=== PATIENT | female | born 2000 | race Hispanic/Latino ===

== ENCOUNTER 2020-02-01 13:18 | Outpatient (CLI) | payer OTHER, SELFPAY ==
--- NOTE | ~2020-02-01 | US_ITS ---
EXAMINATION: US OB <= 14 weeks fetus DATE: 02/01/2020 14:09 INDICATION: Routine care first trimester TECHNIQUE: Real-time transabdominal and transvaginal obstetric ultrasound. FINDINGS: No prior studies for comparison. The uterus measures 12 x 6.3 x 8 cm. There is an intrauterine gestational sac, with pole identi fied. The crown rump length measures 5.3 cm, which correlates with a estimated gestational age of 12 weeks 0 days. heart tones are identified measuring 163 BPM. The right ovary measures 1.7 x 0 .8 x 1.5 cm. The left ovary measures 2.4 x 1.0 x 1.1 cm. No free fluid in the pelvis. IMPRESSION: 1. SL IUP with an EGA of 12 weeks, 0 days (EDC by current ultrasound of 08/15/2020). Reviewed, dictated and finalized at location B. IMPRESSION: 1. SL IUP with an EGA of 12 weeks, 0 days (EDC by current ultrasound of 021).
== END 2020-02-01 13:19 | disposition home or self-care (01) ==
PROVIDERS: Visit Provider Obstetrics & Gynecology
DX: Z34.91 Encounter for supervision of normal pregnancy, unspecified, first trimester (principal); Z3A.12 12 weeks gestation of pregnancy
CPT/HCPCS: 76801

== ENCOUNTER 2020-03-18 16:30 | Outpatient (CLI) | payer OTHER, SELFPAY ==
--- NOTE | ~2020-03-18 | US_ITS ---
EXAMINATION: US OB /maternal detail DATE: 03/18/2020 17:40 INDICATION: Routine care. Assess anatomy during second trimester of . TECHNIQUE: Multiple obstetric sonographic images performed. FINDINGS: There is a single living fetus in variable presentation. The placenta is posterior. LAKIA measures 9.0 cm. (5th%-95%: 8.7-20.2 cm at 18 weeks estimated gestational age) heart rate of 157 beats per minute. The following anatomy was identified as normal: Ventricles, choroid plexus, falx and cava septum pellucidum Cerebellum and cisterna magna Nuchal fold Upper lip Spine Heart views are normal aside from an internal echogenic focus in the left ventricle Diaphragm Stomach Kidneys Bladder 3 vessel cord and cord insertion Bilateral upper and lower extremities including hands and feet The following biometric data were obtained: BPD: 4.1 cm -> 18 weeks 3 days Head circumference: 15.4 cm -> 18 weeks 3 days Abdominal circumference: 14.5 cm -> 19 weeks 6 days Femur length: 2.8 cm -> 18 weeks 3 days Head circumference to abdominal circumference ratio: 1.06 (normal range 1.09-1.26). These measurements are otherwise concordant. Estimated weight: 273 g (+/-) 41 g. or 10 oz. (+/-) 1 oz. IMPRESSION: 1. Single living fetus with variable presentation with heart rate of 157 bpm. 2. Estimated weight is 93rd percentile by Hadlock criteria when 08/18/2020 is used as the PALMER. P lease correlate with clinical information or earlier ultrasounds for most accurate PALMER. 3. Normal survey aside from an echogenic focus in the left ventricle. 4. Head circumference to abdominal circumference ratio slightly greater than 2 standard deviations be low the mean. 5. Normal amniotic fluid index of 9.0 cm. Reviewed, dictated and finalized at location A. RAL OFFICE WORKER IMPRESSION: 1. Single living fetus with variable presentation with heart rate of 157 bpm. 2. Estimated weight is 93rd percentile by Hadlock criteria when 08/18/2020 is used as the PALMER. Please correlate with clinical information or earlier ultr asounds for most accurate PALMER. 3. Normal survey aside from an echogenic focus in the left ventricle. 4. Head circumference to abdominal circumference ratio slightly greater than 2 standard deviations below the mean. 5. Normal amniotic fluid index of 9.0 cm.
== END 2020-03-18 16:31 | disposition home or self-care (01) ==
PROVIDERS: Visit Provider Obstetrics & Gynecology
DX: Z34.92 Encounter for supervision of normal pregnancy, unspecified, second trimester (principal); Z3A.18 18 weeks gestation of pregnancy
CPT/HCPCS: 76805

== ENCOUNTER 2020-04-29 15:07 | Outpatient (CLI) | payer OTHER, SELFPAY ==
--- NOTE | ~2020-04-29 | US_ITS ---
EXAMINATION: US OB follow up DATE: 04/29/2020 15:50 INDICATION: Large for gestational age during late second trimester of TECHNIQUE: Real-time ultrasound of the pelvis was performed. The interpreting radiologist was not pre sent for the study. COMPARISON: None. FINDINGS: There is a single living fetus in vertex presentation. The placenta is posterior. heart rate i s 147 beats per minute (bpm). The amniotic fluid volume is subjectively normal. The following biometric data were obtained: BPD: 5.9 cm -> 24 weeks 1 days Head circumference: 22.7 cm -> 24 weeks 5 days Abdominal circumference: 19.7 cm -> 24 weeks 2 days Femur length: 4.5 cm -> 24 weeks 5 days These measurements are concordant. Head circumference to abdominal circumference ratio: 1.16 (normal range 1.04-1.22). Estimated weight: 702 g (+/-) 105 g. or 1 lbs. 9 oz. (+/-) 4 oz. IMPRESSION: 1. Single living fetus in vertex presentation with heart rate of 147 bpm. 2. Estimated weight is 58th percentile by Hadlock criteria when 08/18/2020 is used as the estimat ed date of delivery (PALMER). Please correlate with clinical information or earlier ultrasounds for most accurate PALMER. Reviewed, dictated and finalized at location A. DEPARTMENT BATTALION CHIEF IMPRESSION: 1. Single living fetus in vertex presentation with heart rate of 147 bpm. 2. Estimated weight is 58th percentile by Hadlock criteria when 08/18/2020 is used as the estimated date of delivery (PALMER). Please correlate with clinical information or earlier ultrasounds for most accurate PALMER.
== END 2020-04-29 15:08 | disposition home or self-care (01) ==
PROVIDERS: Visit Provider Obstetrics & Gynecology
DX: O35.8XX9 Maternal care for other (suspected) fetal abnormality and damage, other fetus (principal); Z3A.00 Weeks of gestation of pregnancy not specified
CPT/HCPCS: 76816

== ENCOUNTER 2020-05-27 15:04 | Outpatient (CLI) | payer OTHER, SELFPAY ==
--- NOTE | ~2020-05-27 | US_ITS ---
EXAMINATION: US OB follow up DATE: 05/27/2020 15:35 INDICATION: Supervision of normal during early third trimester. TECHNIQUE: Real-time ultrasound of the pelvis was performed. The interpreting radiologist was not pre sent for the study. COMPARISON: 04/29/2020 FINDINGS: There is a single living fetus in vertex presentation. The placenta is posterior. heart rate i s 137 beats per minute (bpm). The amniotic fluid volume is subjectively normal. The following biometric data were obtained: BPD: 7.1 cm -> 28 weeks 5 days Head circumference: 26.7 cm -> 29 weeks 0 days Abdominal circumference: 23.3 cm -> 27 weeks 5 days Femur length: 5.2 cm -> 27 weeks 5 days These measurements are concordant. Head circumference to abdominal circumference ratio: 1.14 (normal range 1.01-1.21). Estimated weight: 1139 g (+/-) 171 g. or 2 lbs. 8 oz. (+/-) 6 oz. IMPRESSION: 1. Single living fetus in vertex presentation with heart rate of 137 bpm. 2. Estimated weight is 16th percentile by Hadlock criteria when 08/15/2020 is used as the estimat ed date of delivery (PALMER) based upon earliest ultrasound performed at this institution on 02/01/2020. Please correlate with clinical information or earlier ultrasounds for most accurate PALMER. Reviewed, dictated and finalized at location A. LOPMENT MANAGER IMPRESSION: 1. Single living fetus in vertex presentation with heart rate of 137 bpm. 2. Estimated weight is 16th percentile by Hadlock criteria when 08/15/2020 is used as the estimated date of delivery (PALMER) based upon earliest ultrasound performed at this institution on 02/01/2020. Please correlate with clinical inf ormation or earlier ultrasounds for most accurate PALMER.
== END 2020-05-27 15:05 | disposition home or self-care (01) ==
PROVIDERS: Visit Provider Obstetrics & Gynecology
DX: Z34.91 Encounter for supervision of normal pregnancy, unspecified, first trimester (principal); Z3A.27 27 weeks gestation of pregnancy
CPT/HCPCS: 76816

== ENCOUNTER 2020-08-13 06:00 | Inpatient (IN) | payer OTHER, SELFPAY ==
--- NOTE | 2020-08-12 16:16 | PM.IMHP ---
H&P: HPI History of Present Illness Date/Time: 08/12/20 16:16 20 yo F with history of MTHFR, BV, HSV, GBS, miscarriages, GERD, asthma, anxiety and depression who presents for elective in duction of labor at 39wk3d. She understands her condition procedure and risk involved she understands maternal or indications for delivery with risk involved including but not limited to bleeding infection injury to bladder bowel baby pelvic vessels DVT pneumonia wound infection UTI and risk of anesthesia risk of shoulder dystocia and hemorrhage have been discussed Chief Complaint: term Elective induction of labor Review of Systems Review of Systems: All systems reviewed & are unremarkable except as noted in HPI and below Constitutional: Constitutional: Reports no additional constitutional complaints Eyes: Eyes: Reports no additional eye complaints ENT: Reports system reviewed and no additional complaints, except as documented Cardiovascular: Cardiovascular: Reports no additional cardiovascular complaints Respiratory: Respiratory: Reports no additional respiratory complaints Gastrointestinal: Gastrointestinal: Reports no additional gastrointestinal complaints Genitourinary: Genitourinary: Reports no additional female genitourinary complaints Musculoskeletal: Musculoskeletal: Reports no additional musculoskeletal complaints Integumentary/Breasts: Skin/Breast: Reports system reviewed and no additional complaints, except as docu Neurologic: Reports system reviewed and no additional complaints, except as documented Psychiatric: Psychiatric: Reports no additional psychiatric complaints PMFSH Past Medical History Medical History (Updated 08/12/20 @ 16:33 by Matthew La MD) Asthma BV (bacterial vaginosis) Brooklynn vaginitis INÉS (generalized anxiety disorder) GBS (group B Streptococcus carrier), +RV culture, currently GERD (gastroesophageal reflux disease) Homozygous MTHFR mutation 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 HSV (herpes simplex virus) anogenital infection MDD (major depressive disorder) PTSD (post-traumatic stress disorder) SAB (spontaneous ) Vaginal delivery 03/30/2017140.27 lbs.15 oz.FVaginalFull Term BirthLoUN[facility]NP[facility]: [place] Radhika Berkowitz Family History Family History (Updated 08/12/20 @ 16:29 by Matthew La MD) Grandparent Diabetes mellitus Social History Social History (Updated 08/12/20 @ 16:29 by Matthew La MD) Smoking status: Never smoker Second hand tobacco smoke exposure: No Alcohol intake: never Substance use: never Living arrangements: with family Occupation/Education: unemployed Gender identity (if verbalized by the patient): Female Sexual Orientation (if Verbalized by the Patient): Straight or Heterosexual Spiritual care concerns: No Agree to blood products: Yes Meds Home Medications and Allergies Home Medications Medication Instructions Recorded Confirmed Type acyclovir 800 mg PO DAILY 07/18/20 07/18/20 History calcium carbonate-vitamin D3 1 tablet PO BID 07/18/20 07/18/20 History [Calcium 600 + D(3)] prenat.vits,gwen,kie-awyn-kpkyn 1 tablet PO DAILY 07/18/20 07/18/20 History [ #2] Allergies Allergy/AdvReac Type Severity Reaction Status Date / Time No Known Allergies Allergy Verified 07/18/20 14:44 Exam Const: General: no acute distress HENMT: Ears: TM's normal bilaterally Eyes: General: appearance normal, both eyes and all related structures Neck: Neck: no JVD Resp: Auscultation: clear to auscultation bilaterally Cardio: Rate: regular rate Rhythm: regular rhythm GI: GI Palp: Yes Soft to palpation Auscultation: normal bowel sounds : External Female Exam: normal external appearance Manual OB Exam: dilated 1 cm, effaced 50% and station high Amniotic Fluid: no fluid Back/Spine/Pelvis: Back: no CVA tenderness Skin: General skin e
--- NOTE | 2020-08-12 16:21 | WPDHPUPDATE1 ---
History and Physical Update Update Date/Time: 08/13/2005/05/699 History and Physical has been reviewed, including an updated exam of the patient. There are NO changes in the patient's condition. Risks, benefits, and alternatives have been discussed and questions answered. Patient agrees to proceed with procedure. 20 yo F with history of MTHFR, BV, HSV, GBS, miscarriages, GERD, asthma, anxiety and depression who presents for elective in duction of labor at 39wk3d. She understands her condition procedure and risk involved she understands maternal or indications for delivery with risk involved including but not limited to bleeding infection injury to bladder bowel baby pelvic vessels DVT pneumonia wound infection UTI and risk of anesthesia risk of shoulder dystocia and hemorrhage have been discussed
--- NOTE | 2020-08-12 16:22 | WPDOBADMIT ---
Obstetrics - Admit Note Admission Note: record reviewed. No pertinent additions to the history and/or any subsequent changes in the physical findings that are not consistent with the expected course of the were found. Additions to the history and/or subsequent changes in the physical findings follow. None. 20 yo F with history of MTHFR, BV, HSV, GBS, miscarriages, GERD, asthma, anxiety and depression who presents for elective in duction of labor at 39wk3d. She understands her condition procedure and risk involved she understands maternal or indications for delivery with risk involved including but not limited to bleeding infection injury to bladder bowel baby pelvic vessels DVT pneumonia wound infection UTI and risk of anesthesia risk of shoulder dystocia and hemorrhage have been discussed 08/13/20 1400
[2020-08-13] VITALS (33 sets, daily range): BP systolic 89–126; BP diastolic 36–77; PULSE 76–113; RESP 18; TEMP 36.2–37.1; O2SAT 100; BMI 31.3
[2020-08-13] MEDS: AMPICILLIN 2 GM/NS 100 ML 2 GM/100 ML BAG IVPB (06:51)
[2020-08-13] MEDS: LACTATED RINGERS 1,000 ML 125 ML IV CONT ×2 (06:51→17:22)
[2020-08-13] MEDS: OXYTOCIN 30 UNITS/NS 500 ML 30 UNITS/500 ML BAG IV CONT (06:52)
[2020-08-13 06:53] LABS: Basophils Percent Auto 0.3 % (0.2-1.2); Eosinophils Absolute Auto 0.1 K/mm3 (0-0.3); Eosinophils Percent Auto 1.3 % (0-4.4); Hematocrit 34.7 % (37.0-47.0); Hemoglobin 11.8 g/dL (12.0-15.0); Immature Granulocyte Absolute 0.07 K/mm3 (0.00-0.031); Lymphocytes Percent Auto 19.2 % (18.3-44.2); Mean Corpuscular Hemoglobin 30.5 pg (26-34); Mean Corpuscular Volume 89.7 fl (80-100); Mean Platelet Volume 10.5 fl (7.4-10.4); Monocytes Absolute Auto 0.5 K/mm3 (0.1-0.6); Monocytes Percent Auto 7.7 % (2.6-8.5); Neutrophils Absolute Auto 4.8 K/mm3 (1.3-6.7); Neutrophils Percent Auto 70.5 % (45.5-73.1); Platelet Count Result 217 k/mm3 (150-375); Red Blood Count 3.87 M/mm3 (4.2-5.4); Red Cell Distribution Width 13.5 % (11.5-14.5); White Blood Count 6.8 K/mm3 (4.5-10.0)
--- NOTE | 2020-08-13 07:05 | LDADM ---
This patient, Paulino Rodriguez, was admitted to Labor/Delivery/Recovery 105 on 08/13/20 at 06:00. Plans for labor, pain management and were discussed with patient. Patient/family oriented to hospital policies and general routines including ID bracelet, bed and alarms, visiting hours, pain management, procedures, bathroom and other care routines, personal items, smoking policy, room service/diet and guest tray routines, security routines, and visiting hours. Patient/Family are encouraged to report perceived risks to care and to ask questions if they do not understand what they are told or what they should do. See OBIX for further documentation.
--- NOTE | 2020-08-13 08:28 | WPDANESEPP ---
Anes - Eval Pre Procedure Procedure: Labor Epidural Date/Time: 08/13/20 08:28 Pre Op Diagnosis: Induction of Labor Patient Data Age: 20 Gender: F Height: 1.59 m Weight: 79 kg Last Vital Signs Temp 37.1 C 08/13/20 07:00 Pulse 90 08/13/20 07:30 BP 97/66 L 08/13/20 07:30 Allergies Allergy/AdvReac Type Severity Reaction Status Date / Time No Known Allergies Allergy Verified 07/18/20 14:44 Home Medications Medication Instructions Recorded Confirmed Type acyclovir 800 mg PO DAILY 07/18/20 07/18/20 History calcium carbonate-vitamin D3 1 tablet PO BID 07/18/20 07/18/20 History [Calcium 600 + D(3)] prenat.vits,gwen,ljs-axlf-ccsrk 1 tablet PO DAILY 07/18/20 07/18/20 History [ #2] albuterol sulfate [Ventolin HFA] 1 puff INHALATION DAILY PRN 08/13/20 08/13/20 History Laboratory Tests 08/13/20 08/13/20 08/13/20 06:46 06:46 08:09 WBC 6.8 K/mm3 K/mm3 (4.5-10.0) RBC 3.87 M/mm3 L M/mm3 (4.2-5.4) Hgb 11.8 g/dL L g/dL (12.0-15.0) Hct 34.7 % L % (37.0-47.0) MCV 89.7 fl fl (80-100) MCH 30.5 pg pg (26-34) MCHC 34.0 g/dl g/dl (32-36) RDW 13.5 % % (11.5-14.5) Plt Count 217 k/mm3 k/mm3 (150-375) MPV 10.5 fl H fl (7.4-10.4) Immature Gran % (Auto) 1.0 % H % (0-0.5) Neut % (Auto) 70.5 % % (45.5-73.1) Lymph % (Auto) 19.2 % % (18.3-44.2) [place] % (Auto) 7.7 % % (2.6-8.5) Eos % (Auto) 1.3 % % (0-4.4) Baso % (Auto) 0.3 % % (0.2-1.2) Lymph # (Auto) 1.30 K/mm3 K/mm3 (0.9-3.2) [place] # (Auto) 0.5 K/mm3 K/mm3 (0.1-0.6) Eos # (Auto) 0.1 K/mm3 K/mm3 (0-0.3) Baso # (Auto) 0.0 K/mm3 K/mm3 (0.0-0.1) Abs Immat Gran (auto) 0.07 K/mm3 H K/mm3 (0.00-0.031) Absolute Neuts (auto) 4.8 K/mm3 K/mm3 (1.3-6.7) Absolute Nucleated RBC 0.0 K/mm3 K/mm3 (0.0-0.012) Nucleated RBC % 0.0 % % (0.0-0.2) RPR Pending HIV 1&2 Ab/P24 Ag 4thGn Pending Patient hx anesthesia problems: none Family hx anesthesia problems: none PMFSH Past Medical History Medical History Asthma BV (bacterial vaginosis) Brooklynn vaginitis INÉS (generalized anxiety disorder) GBS (group B Streptococcus carrier), +RV culture, currently GERD (gastroesophageal reflux disease) Homozygous MTHFR mutation [id number] HSV (herpes simplex virus) anogenital infection MDD (major depressive disorder) PTSD (post-traumatic stress disorder) SAB (spontaneous ) Vaginal delivery 03/30/2017140.27 lbs.15 oz.FVaginalFull Term BirthLoLovelace [facility] HospitalNP[facility]: [facility] Dr[facility] Denisha Berkowitz Family History Family History Grandparent Diabetes mellitus Social History Social History Smoking status: Never smoker Second hand tobacco smoke exposure: No Alcohol intake: never Substance use: never Living arrangements: with family Occupation/Education: unemployed Gender identity (if verbalized by the patient): Female Sexual Orientation (if Verbalized by the Patient): Straight or Heterosexual Spiritual care concerns: No Agree to blood products: Yes Exam Day of Procedure 08/13/20 08:28 Patient weight: obese Heart: regular rate and rhythm Lungs: normal air movement Airway: Mallampati scale class II Neurological: alert and oriented
[2020-08-13 09:12] LABS: Amphetamine Screen Urine Negative (Negative); Barbiturate Screen Urine Negative (Negative); Benzodiazepines Screen Urine Negative (Negative); Cannabinoid Screen Urine Negative (Negative); Cocaine Screen Urine Negative (Negative); Methadone Screen Urine Negative (Negative); Opiate Screen Urine Negative (Negative); Phencyclidine Screen Urine Negative (Negative)
[2020-08-13 09:16] LABS: HIV 1/2 Ab P24 Ag Result Negative (Negative)
[2020-08-13] MEDS: AMPICILLIN 1 GM/NS 50 ML 1 GM/50 ML BAG IVPB ×2 (11:03→15:04)
--- NOTE | 2020-08-13 12:09 | PM.OBPNLAB ---
Pain Control Date/time seen: 08/13/20 11:09 Pain control: tolerating well Pelvic Exam Dilation (cm): 2 Effacement (%): 50 station: -3 Amniotic membrane status: Ruptured Comments: AROM clear af Contractions Monitor mode: External Contraction frequency: 4 Contraction duration: 45 Contraction pattern: Regular Contraction phase: Contraction Contraction intensity: Moderate Status status: Category l Assessment and Plan Pitocin rate (mU/min): 18 Assessment: induction ongoing Plan: continuous present management Comments: NCLalit
--- NOTE | 2020-08-13 14:35 | PM.OBPNLAB ---
Pain Control Date/time seen: 08/13/20 14:34 Pain control: tolerating well Pelvic Exam Dilation (cm): 4 Effacement (%): 70 station: -3 Amniotic membrane status: Ruptured Contractions Monitor mode: External Contraction frequency: 4 Contraction pattern: Regular Contraction phase: Contraction Contraction intensity: Moderate Status status: Category l Assessment and Plan Assessment: active labor Plan: continuous present management
--- NOTE | 2020-08-13 16:35 | PM.OBPNLAB ---
Pain Control Date/time seen: 08/13/20 16:35 Pain control: tolerating well Pelvic Exam Dilation (cm): 7 Effacement (%): 80 station: -2 Amniotic membrane status: Ruptured Contractions Monitor mode: External Contraction frequency: 4 Contraction duration: 45 Contraction pattern: Regular Contraction phase: Contraction Contraction intensity: Strong/Firm Status status: Category l Assessment and Plan Assessment: active labor Plan: continuous present management
--- NOTE | 2020-08-13 17:50 | PM.OBPNLAB ---
Pain Control Date/time seen: 08/13/20 17:49 Pain control: tolerating well Pelvic Exam Dilation (cm): 9 Effacement (%): 100 station: -2 Amniotic membrane status: Ruptured Contractions Monitor mode: External Contraction frequency: 4 Contraction pattern: Regular Contraction phase: Contraction Contraction intensity: Strong/Firm Status status: Category l Assessment and Plan Assessment: active labor Plan: continuous present management
--- NOTE | 2020-08-13 18:50 | PM.OBPRVD ---
OB - Delivery Note Procedure Delivery date: 08/13/20 Procedure: Normal spontaneous vertex vaginal delivery a viable male infant and placenta events: Labor Induction Intrapartal events: None Induction method: per pitocin protocol Delivery augmentation: rupture of membranes Delivery monitor: external FHT and external uterine Route of delivery: Episiotomy description: None Laceration Description: None Specimen: Yes (Placenta, cord gases, cord blood) Quantitative Blood Loss (ml): 140 Anesthesia type: None Disposition: floor Complications: None Narrative: Patient was in knee-chest position for the end of the 1st stage of labor with excellent resolution to complete cervical dilation rapid descent for 2nd stage of labor. Patient pushed in the 2nd stage of labor and had a normal spontaneous vertex vaginal delivery a viable male infant over an intact perineum EZ delivery of anterior shoulder posterior shoulder and delivered and placed onto the maternal abdomen. Cord clamped and cut normal spontaneous respirations and cry no observed abnormalities on the exam cord gas obtained cord blood obtained. Placenta delivered intact with a three-vessel cord the uterus contracted well Pitocin given intravenously the uterus was firm above pubic symphysis. Cervix and rectum were checked no sponges left in the vagina no fistula sphincters in tact. Labor room 105 [place] Baby Date of : 08/13/20 Time of : 18:37 Weeks of gestation at delivery: 39 Infant gender: Male Weight (pounds): 6 Weight (ounces): 13 presentation: vertex position: Left Occiput Anterior Placenta delivery description: Spontaneous and Normal Configuration cord vessel description: 3 Vessels score one minute: 9 score five minutes: 9 Narrative: Normal spontaneous respirations normal transition scores 9 and 9 weight 6 lb 13 oz normal exam taken the nursery stable condition breast and bottle feeding
[2020-08-13] MEDS: OXYTOCIN 30 UNITS/NS 500 ML 30 UNITS/500 ML BAG 125 UNITS IV CONT (19:11)
[2020-08-13] MEDS: WITCH HAZEL 40 PADS 1 PAD TOPICAL (20:12)
[2020-08-13] MEDS: BENZOCAINE 20% AER SPR (*SP) 56 GM CAN 1 SPRAY TOPICAL (20:12)
[2020-08-13] MEDS: IBUPROFEN 600 MG TABLET PO (20:13)
--- NOTE | 2020-08-13 20:53 | PC.NURSE ---
Patient transferred to post room #288 via wheel chair. Oriented to unit, room, information board, rooming in, admission packet and security measures. Patient verbalizes understanding.
[2020-08-14] VITALS: BP 97/59; PULSE 93; RESP 18; TEMP 36.4; O2SAT 100
[2020-08-14 04:30] VITALS: BP 98/60; PULSE 79; RESP 18; TEMP 36.7; O2SAT 100
[2020-08-14] MEDS: IBUPROFEN 600 MG TABLET PO ×2 (04:48→17:29)
[2020-08-14 04:55] LABS: Hematocrit 34.8 % (37.0-47.0); Hemoglobin 11.8 g/dL (12.0-15.0)
[2020-08-14 08:00] VITALS: PULSE 79; RESP 18; O2SAT 100
--- NOTE | 2020-08-14 11:07 | PM.OBPNVD ---
OB - PN: Subj Subjective Date/time seen: 08/14/20 11:07 Patient comments: no complaints, pain well controlled, tolerating diet and flatus present [place] baby status: doing well and nursing well feeding status: exclusively breast feeding OB - PN: Obj Data Labs CBC & Chem 7: 08/14/20 04:37 Labs: Laboratory Results - last 24 hr 08/14/20 04:37 Hgb 11.8 L Hct 34.8 L OB - PN A/P Assessment and Plan (1) Term delivered: Code(s): O80 - Encounter for full-term uncomplicated delivery Status: Acute Plan day: 1 Plan: routine care, discharge home and follow up 6 weeks Time Spent With Patient Time: Total time spent is greater than 50% in coordination of care (as documented) at patient's floor/unit and/or counseling patient: Time with patient: less than 15 minutes Review of Systems Review of Systems: All systems reviewed & are unremarkable except as noted in HPI and below Exam Const: General: comfortable, no acute distress, alert and awake Chest: Breast/axilla inspection: normal inspection of the breasts Resp: Effort & Inspection: normal respiratory effort Cardio: Rate: regular rate GI: Auscultation: normal bowel sounds : External Female Exam: normal external appearance Bimanual exam- vagina & uterus: non-tender Psych: Appearance: grossly normal Mental Status: mental status grossly normal
--- NOTE | 2020-08-14 11:09 | PM.OBDSVD ---
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: Code(s): Z15.89 - Genetic susceptibility to other disease Status: Acute (5) GBS (group B Streptococcus carrier), +RV culture, currently : Code(s): O99.820 - Streptococcus B carrier state complicating Status: Acute OB - DS: Summary Hospital Course Time spent discussing smoking cessation with patient: 3 to 10 minutes OB Procedures : Ultrasound OB Procedures Intrapartum: Spontaneous Vag Delivery OB Procedures: : None Peripartum Data Infant Delivery Method: Natural Vaginal Laceration Description: None Episiotomy description: None Procedures: Normal spontaneous vertex vaginal delivery a viable male infant and placenta complications: none 1: Gender: Male Disposition of : home Status at Discharge Functional status at discharge: independent ambulation Overall status at discharge: patient is back to baseline Time Spent with Patient Time attestation: Total time spent providing and/or coordinating discharge services: Time spent: Less than 30 minutes Exam Const: General: cooperative, healthy appearing, comfortable, no acute distress, well developed, alert, awake and Physically active Nutritional Appearance: average body habitus Orientation/consciousness: patient oriented x3 Limitations: no limitations HENMT: Head: normal to inspection Eyes: General: appearance normal, both eyes and all related structures Neck: Neck: normal visual inspection Chest: Chest palpation & inspection: normal inspection of the chest Breast/axilla inspection: normal inspection of the breasts Resp: Effort & Inspection: normal respiratory effort Auscultation: clear to auscultation bilaterally Cardio: Rate: regular rate Rhythm: regular rhythm GI: Inspection: normal to inspection GI Palp: Yes Soft to palpation Auscultation: normal bowel sounds : External Female Exam: normal external appearance Bimanual exam- vagina & uterus: non-tender Back/Spine/Pelvis: Back: no CVA tenderness Skin: General skin exam: normal color Neuro: General: patient oriented x3, gait normal, tone normal and moves all extremities Extrem: General: normal to inspection, full ROM and no calf tenderness Psych: Appearance: grossly normal Mental Status: mental status grossly normal Speech and movement: Normal speech and movement present Affect: normal affect Attitude: cooperative Thought process: Normal thought process present Thought content: Yes Normal thought content present Insight: Good insight present (Psych) Judgement: Good judgement present (Psych) DS: Data Data Completed and Pending Labs on day of discharge: Labs from last 24 hours 08/13/20 08/13/20 08/13/20 08:43 08:09 06:46 WBC RBC Hgb Hct MCV MCH MCHC RDW Plt Count MPV Immature Gran % (Auto) Neut % (Auto) Lymph % (Auto) [place] % (Auto) Eos % (Auto) Baso % (Auto) Lymph # (Auto) [place] # (Auto) Eos # (Auto) Baso # (Auto) Abs Immat Gran (auto) Absolute Neuts (auto) Absolute Nucleated RBC Nucleated RBC % Urine Opiates Screen Negative Urine Methadone Screen Negative Ur Barbiturates Screen Negative Ur Phencyclidine Scrn Negative Ur Amphetamine Screen Negative U Benzodiazepi
[2020-08-14] MEDS: MULTIVIT/MIN/PREN/FOL AC/IRON TABLET 1 TAB PO (17:29)
[2020-08-14] MEDS: DOCUSATE SODIUM 100 MG CAPSULE PO (17:29)
[2020-08-14 17:30] VITALS: PULSE 72; RESP 18; O2SAT 100
[2020-08-14 17:50] VITALS: BP 112/64; PULSE 72; RESP 18; TEMP 36.4; O2SAT 100
[2020-08-15 11:30] LABS: Rapid Plasma Reagin Non-Reactive (NonReactive)
[2020-08-16 07:47] VITALS: BP 120/74; PULSE 104; RESP 20; TEMP 36.8; O2SAT 99
== END 2020-08-14 20:10 | disposition home or self-care (01) | DRG 560 ==
LOC: ANHLDR 19:12 → ANHOB2 21:07
PROVIDERS: Admitting Provider Obstetrics & Gynecology; Visit Provider Obstetrics & Gynecology
DX: O99.824 Streptococcus B carrier state complicating childbirth (principal); Z37.0 Single live birth; Z3A.39 39 weeks gestation of pregnancy; O99.284 Endocrine, nutritional and metabolic diseases complicating childbirth; E72.12 Methylenetetrahydrofolate reductase deficiency; O99.52 Diseases of the respiratory system complicating childbirth; J45.909 Unspecified asthma, uncomplicated; O99.344 Other mental disorders complicating childbirth; F41.1 Generalized anxiety disorder; F32.9 Major depressive disorder, single episode, unspecified; F43.10 Post-traumatic stress disorder, unspecified; O99.62 Diseases of the digestive system complicating childbirth; K21.9 Gastro-esophageal reflux disease without esophagitis; O98.32 Other infections with a predominantly sexual mode of transmission complicating childbirth; B00.9 Herpesviral infection, unspecified
CPT/HCPCS: 36415; 80307; 85014; 85018; 85025; 86592; 86703; 86850; 86900; 86901; 88307; A9270; G0432; J0290; J2590; J7120

== ENCOUNTER 2024-01-23 12:01 | Outpatient (CLI) | payer OTHER, SELFPAY ==
[2024-01-23 12:34] LABS: Basophils Percent Auto 0.6 % (0.2-1.2); Eosinophils Absolute Auto 0.1 K/mm3 (0-0.3); Eosinophils Percent Auto 1.7 % (0-4.4); Hematocrit 37.2 % (37.0-47.0); Hemoglobin 12.4 g/dL (12.0-15.0); Immature Granulocyte Absolute 0.02 K/mm3 (0.00-0.031); Immature Granulocyte Percent A 0.3 % (0-0.5); Lymphocytes Absolute Auto 1.07 K/mm3 (0.9-3.2); Lymphocytes Percent Auto 16.4 % (18.3-44.2); Mean Corpuscular HGB Conc 33.3 g/dl (32-36); Mean Corpuscular Hemoglobin 29.8 pg (26-34); Mean Corpuscular Volume 89.4 fl (80-100); Mean Platelet Volume 10.2 fl (7.4-10.4); Monocytes Absolute Auto 0.3 K/mm3 (0.1-0.6); Monocytes Percent Auto 5.2 % (2.6-8.5); Neutrophils Percent Auto 75.8 % (45.5-73.1); Platelet Count Result 242 k/mm3 (150-375); Red Blood Count 4.16 M/mm3 (4.2-5.4); Red Cell Distribution Width 12.3 % (11.5-14.5); White Blood Count 6.5 K/mm3 (4.5-10.0)
[2024-01-23 13:28] LABS: HIV 1/2 Ab P24 Ag Result Negative (Negative)
[2024-01-23 13:39] LABS: Hepatitis B Surface Antigen Negative (Negative); Rubella IgG Antibody 21.8 IU/ML
[2024-01-23 13:53] LABS: Rapid Plasma Reagin Non-Reactive (NonReactive)
[2024-01-24 07:24] LABS: CMV IgG Antibody <0.60 U/mL; Varicella IgG Antibody 7.14 S/CO
== END 2024-01-23 12:02 | disposition home or self-care (01) ==
LOC: ANHLAB 12:04
PROVIDERS: Visit Provider Student in an Organized Health Care Education/Training Program
DX: N94.89 Other specified conditions associated with female genital organs and menstrual cycle (principal)
CPT/HCPCS: 36415; 84702; 85025; 86592; 86644; 86703; 86747; 86762; 86787; 86850; 86900; 86901; 87086; 87340; G0432

== ENCOUNTER 2024-02-04 09:03 | Outpatient (CLI) | payer OTHER, SELFPAY ==
--- NOTE | ~2024-02-04 | US_ITS ---
CORRECTED REPORT Removed w TV for examination description [facility] 02/06/24 This report was recreated on 02/06/2024. Original report was EXAMINATION: US OB <=14 wk fetus DATE: 02/04/2024 10:01 INDICATION: Amenorrhea with positive test TECHNIQUE: Real-time pelvic ultrasound utilizing both a transvaginal and transabdominal probe was performed. The interpreting radiologist was not present for the study. COMPARISON: None. FINDINGS: The uterus measures 13.3 x 6.3 x 7.7 cm. There is an intrauterine gestational sac. A yolk sac and pole are identified. The crown rump length measures 2.1 cm, which correlates with an estimated gestational age of 8 weeks and 5 days. heart motion is identified measuring 177 beats per minute (bpm) by M-mode Doppler. The right ovary is not visualized. The left ovary measures 3.2 x 2.0 x 2.3 cm. Vascular flow identified in the left ovary on color Doppler. There is no free fluid in the pelvis. IMPRESSION: 1. Single living fetus with heart of 177 bpm. 2. Gestational age by ultrasound of 8 weeks 5 day(s) +/- 5 day(s) with ultrasound estimated date of delivery ([facility]) of 09/10/2024. Reviewed, dictated and finalized at location A. MTDD IMPRESSION: 1. Single living fetus with heart of 177 bpm. 2. Gestational age by ultrasound of 8 weeks 5 day(s) +/- 5 day(s) with ultraso und estimated date of delivery ([facility]) of 09/10/2024.
== END 2024-02-04 09:04 | disposition home or self-care (01) ==
LOC: ANHIMG 09:06
PROVIDERS: Visit Provider Student in an Organized Health Care Education/Training Program
DX: N91.2 Amenorrhea, unspecified (principal)
CPT/HCPCS: 76801; 76817

== ENCOUNTER 2024-09-10 05:03 | Inpatient (IN) | payer OTHER, SELFPAY ==
[2024-09-10] VITALS (155 sets, daily range): BP systolic 90–126; BP diastolic 40–88; PULSE 63–156; RESP 16–18; TEMP 36.4–37.1; O2SAT 95–100; BMI 29.5
--- OUTSIDE RECORDS SUMMARY | 2024-09-10 05:09 | XMS_ITS | Data Portability ---
Author Organization [facility] [place] Address [address] [place] [place] [address] Assessment Encounter Date Assessment Date Assessment LastModified by Organization Details LastModified Time 08/20/2024 08/20/2024 Patient is ___weeks . Discussed plan. Not available 08/20/2024 10:44:43 08/27/2024 08/27/2024 Patient is ___weeks . Discussed plan. Not available 08/27/2024 10:28:31 09/03/2024 09/03/2024 Patient is ___weeks . Discussed plan. Not available 09/03/2024 17:33:57 Plan of Treatment Reminders Order Date Submit Date Provider Last Modified By Organization Details Last Modified Time Details Appointments None record ed. Lab None record ed. Referral None record ed. Procedures None record ed. Surgeries None record ed. Imaging US, obstet sydni, follow -up 025 09/04/19 25 [email or web address] [place], [address], [place], [address], 18:29:56 Medication Orders None record ed. Patient TargetsNo targets recorded. Patient InstructionsNo instructions recorded. Reason for Referral None Reported. Results Created Date Observation Date Name Description Value Unit Range Abnormal Flag Note LastModifiedBy Organization Detail LastModifiedTime 08/21/19 25 08/20/2024 CULTU RE: GROUP B STREP SCREE N, REFLE X SUSCE PTIBI LITY result report SEE RESULT S BELOW Test: Cultu re: Group B Strep , Refle x Susce ptibi lity ([facility]/ [facility] ) Speci men Sourc e: Vagin a/Rec yamile Speci men Type: Vagin al/Re ctal Speci men Date: 025 1042 Resul t Date: 2024 1357 Resul t Statu s: Final resul t Abnor mal: No Resul ting Lab: [facility] [address] [facility] [address] Tel: CULTU RE ----- ----- ----- --- No Group B strep isola toni at 2 days (deshaun ctive broth enhan cemen t) Not Available [facility] (Lab) [address], [place], [address], 08/23/2024 15:00:38 08/08/19 25 08/06/2024 US, obste tric, follo w-up No observ ation record ed. [email or web address], [place], [address], 08/11/2024 14:17:18 08/08/19 25 08/07/2024 US, obste tric, follo w-up No observ ation record ed. [email or web address] [place] [address], [place], [address], 08/07/2024 13:31:30 09/04/19 25 09/03/2024 US, obste tric, follo w-up No observ ation record ed. [facility] [address], [place], [address], 09/03/2024 17:54:19 09/04/19 25 09/03/2024 US, obste tric, follo w-up No observ ation record ed. [address], [place], [address], 09/08/2024 23:07:18 Result Notes None recorded. Problems Name Problem SNOMED Code Status Onset Date Resolution Date Notes Provider Name and Address Organization Details Recorded Time 46073090 Active 024 Ashlie Raza null, [facility] 4 10:10:01 Marginal insertion of umbilical cord 13916941 Active Isiah Otero MD [address], [place], [address], [facility] 5 11:17:56 Problem Notes None recorded. Procedures Surgical History Date Name Laterality Status Provider Name and Address Organization Details Recorded Time 04/02/20 24 Colposcopy completed Isiah Otero MD [address], [place], [address], [facility] 04/02/2024 19:08:53 03/05/20 24 Date of Last Pap Smear completed Ashlie Raza [facility] 03/05/2024 10:06:35 04/15/19 17 excision of sebaceous cyst of head or neck completed Nicki Fontaine [facility] 09/03/2023 18:09:27 Imaging Results None recorded. Procedure Notes None recorded. Medical Equipment None Reported. Allergies No known drug allergies Medications Name Sig Start Date Stop Date Status Note LastModified by Organization Details LastModified Time fluconazole 150 mg tablet TAKE 1 TABLET BY MOUTH EVERY OTHER DAY 05/28 completed Not Available Not Available Not Available valacyclovi r 1 gram tablet TAKE 1 TABLET BY MOUTH EVERY 12 HOURS active Not Available Not Available No t Available fluconazole 200 mg tablet TAKE 1 TABLET BY MOUTH EVERY OTHER DAY 02/12 completed Not Available Not Available Not Available metronidazo le 0.75 % (37.5 mg/5 gram) vaginal gel 1 APPLICATO RFUL ONCE DAILY 03/05 completed Not Available Not Available Not Available metronidazo le 500 mg tablet TAKE 1 TABLET BY MOUTH TWICE DAILY WITH MEALS FOR 7 DAYS 02/12 completed Not Available Not Available Not Available ondansetron 8 mg disintegrat ing tablet DISSOLVE 1 TABLET IN MOUTH TWICE DAILY 04/30 completed Not Available Not Available Not Available iron active Not Available Not Availa ble Not Available active Not Available Not Avai lable Not Available Vitals Date Recorded Body height Body mass index (BMI) Body weight Systolic blood pressure Diastolic blood pressure Provider Name and Address Organization Details Last Updated DateTime 08/20/2024 159.39 cm 28.9 kg/m2 90536.96 g 112 mm[Hg] 70 mm[Hg] [facility] 10:45:10 Date Recorded Body weight Systolic blood pressure Diastolic blood pressure Provider Name and Address Organization Details Last Updated DateTime 08/27/2024 98391.9639 4 g 107 mm[Hg] 74 mm[Hg] [facility] 08/27/2024 10:29:10 Date Recorded Body weight Systolic blood pressure Diastolic blood pressure Provider Name and Address Organization Details Last Updated DateTime 09/03/2024 19452.7410 5 g 120 mm[Hg] 78 mm[Hg] [facility] 09/03/2024 17:35:01 Social History Question Answer Notes LastModified by Organizat ion Details LastModified Time Tobacco Smoking Status Never Smoker Nicki chávez, [facility] 09/03/2023 18:08:51 Do You Have An Advance Directive? No Information n ot available 02/13/2024 Are You Blind Or Do You Have Difficulty Seeing? No [email or web address] Information n ot available 09/03/2023 What Is Your Level Of Caffeine Consumption? None Information not available 02/13/2024 How Much Tobacco Do You Chew? None Information not available 02/13/2024 In The 14 Days Before Symptom Onset, Have You Had Close Contact With A Laboratory-confirm ed COVID-19 While That Case Was Ill? No Information n ot available 09/03/2023 In The 14 Days Before Symptom Onset, Have You Had Close Contact With A Person Who Is Under Investigation For COVID-19 While That Person Was Ill? No [email or web address] Information not available 09/03/2023 Have You Been To An Area Known To Be High Risk For COVID-19? No [email or web address] Information not available 09/03/2023 Are You Deaf Or Do You Have Serious Difficulty Hearing? No [email or web address] Information not available 09/03/2023 What Type Of Diet Are You Following? REGULAR [email or web address] Information n ot available 09/03/2023 What Is The Highest Grade Or Level Of School You Have Completed Or The Highest Degree You Have Received? [id number] Information not available 02/13/2024 Are There Any Guns Present In Your Home? No Information not available 02/13/2024 Have You Ever Been Counseled For Unhealthy Alcohol Use? No [email or web address] Information not available 09/03/2023 Do You Use Protection During Sex? No Information not available 02/13/2024 Do You Use Your Seat Belt Or Car Seat Routinely? Yes [email or web address] Information not available 09/03/2023 Do You Have Smoke And Carbon Monoxide Detectors In Your Home? Yes Information not available 09/03/2023 How Much Tobacco Do You Smoke? No Information not available 02/13/2024 Do You Use Sunscreen Routinely? No Information not available 02/13/2024 Has Tobacco Cessation Counseling Been Provided? No Information not available 09/03/2023 Have You Used IV Drugs? No Information not available 02/13/2024 Do You Have Difficulty Walking Or Climbing Stairs? No [email or web address] Information not available 09/03/2023 Sex: Unknown Functional Status Question Answer Note LastModified by Organizat ion Details LastModified Time Do you use any illicit or recreational drugs? No [email or web address] Information not available 09/03/2023 Do you or have you ever used any other forms of tobacco or nicotine? No [email or web address] Information not available 09/03/2023 What is your level of alcohol consumption? None Information not available 02/13/2024 Are you able to walk? YESWOREST [email or web address] Information not available 09/03/2023 Are you able to care for yourself? Yes [email or web address] Information not available 09/03/2023 What is your occupation? Stay at home mom Information not available 02/13/2024 Do you have difficulty dressing or bathing? No [email or web address] Information not available 09/03/2023 What is your exercise level? Moderate Information not available 02/13/2024 Mental Status Question Answer Note LastModified by Organization D etails LastModified Time Do you feel stressed (tense, restless, nervous, or anxious, or unable to sleep at night)? [id number] Information not available 02/13/2024 Family History Relationship Description Onset Age of this Age Resolved Age Notes LastModified by Organization Details LastModified Time Father No current problems or disability [email or web address] Not available 08/14 18:08:31 Mother No current problems or disability [email or web address] Not available 08/14 18:08:31 Medical History Condition Response Allergies (Food, seasonal, environmental ) N Other N Breast Cancer N Drug/Latex Allergies/Reactions N Blood Transfusion N Dermatologic Disorders N Lung Disease N Defects or Inherited Disease N Breast Problem N Gestational Diabetes N Hematologic disorders N Anesthesia Complications N History of STI N Deep Vein Thrombosis N Polycystic ovary syndrome N Anxiety Disorder Y Autoimmune disease N Arthritis N Infertility N Polyps N Acid Reflux (GERD) N History of abnormal pap N Cancer N Stroke N Varicosities N Neurologic/Epilepsy N Endometriosis N High Cholesterol N Headaches N Fibromyalgia N Kidney Disease N Heart Problems N Kidney or Bladder Problems N Thyroid Problems N GI Problems N Eating Disorder N Anemia N Art (IVF or FET) N Psychiatric Illness N Ovarian Cancer N Diabetes N Pulmonary (TB, Asthma) N Hepatitis/Liver Disease N No Past Medical History N Eczema N Urinary Tract Infection N Abuse/Domestic Violence N Asthma N Trauma/Violence N Depression/ depression Y Heart Disease N Pre-Eclampsia N Hypertension N Osteoporosis N Thrombophilias N Gynecological History Statement/Question Response Abnormal Pap N Flow Moderate Date of Last Mammogram Date of LMP 12/09/2023 N On BCP's at Conception? N STIs/STDs N Was last menstrual period normal Y HPV Vaccine N Duration of Flow (days) 5 Current Control Method Age at First Child 16 Are cycles usually normal Y Frequency of Cycle (Q days) 28 Sexually Active? Y Menses Monthly Y Date of DEXA bone scan Age of first menstrual cycle 12 Date of Last Pap Smear 03/05/2024 Sexual Problems? N LMP Definite N Obstetrics History GPAL:G 4 P 2 0 1 2 Type Value Full Term 2 Spontaneous 1 Living 2 Total 4 Past Encounters Encounter ID Performer Location Encounter Start Date Encounter Closed Date Diagnosis/Indication Diagnosis SNOMED-CT Code Diagnosis ICD10 Code Diagnosis Note [id number] [facility] [address],[place] [address] 09/03/2023 17:37:17 09/03/2023 18:20:08 Vaginitis 72938047 N76.0 Today her exam agrees with subjective reports today.We discussed vulvar care guidelines recommenda tionsCouns eled on medication R/B's, Most common side effects, & use. All questions were answered to patient satisfacti on. STD screen [facility] was reviewed and updated as reported in chart.Due for pap smear/WWE- will schedule Time spent in visit is a total of 30 mins with at least 50% of visit consisting of counseling and review of plan of care. [id number] Isiah Otero MD [place] [address],[place] [address] 02/13/2024 11:23:59 02/13/2024 11:58:05 [id number] Isiah Otero MD [place] [address],[place] [address] 02/13/2024 11:24:10 02/13/2024 13:49:48 Amenorrhea 43866271 N91.2 this patient is a 23-year-ol d female who presents for amenorrhea . She is a positive test. Ultrasound revealed a 1st trimester gestation. Patient has no complaints . We talked about early care. Talked about genetic screening. We talked about her ultrasound results. We talked about the 12 week ultrasound that has genetic screening components . She was given recommenda tions on exercise, diet, over-the-c ounter medication s. We reviewed her obstetric history. We reviewed her medical history. We reviewed her social history. She will begin routine care at her next visit. Nausea and vomiting 1693 1999 R11.2 Bacterial vaginosis 4197 10464 N76.0 [id number] Isiah Otero MD [place] [address],[place] [address] 03/05/2024 09:16:48 03/05/2024 09:59:45 screening 577508741 Z36.82 Z3A.12 [id number] Isiah Otero MD [place] [address],[place] [address] 03/05/2024 09:17:09 03/05/2024 10:36:30 Routine care 580253657 Z34.90 Gestation period, 12 weeks 79574414 Z3A.12 [id number] MD Shawn Oneill [address],[place] [address] 04/02/2024 10:25:11 04/03/2024 10:19:40 Abnormal cervical Papanicolaou smear 533586393 R87.619 colposcopi c examinatio n was performed it was satisfacto ry. It appeared normal [id number] Isiah Otero MD [place] [address],[place] [address] 04/30/2024 09:22:12 04/30/2024 10:27:41 screening for malformation 538194521 Z36.3 Z3A.20 [id number] Isiah Otero MD [place] [address],[place] [address] 04/30/2024 09:22:27 04/30/2024 11:27:59 Vaginitis 75837825 N76.0 Routine an tenatal care 218587778 Z34.90 [id number] MD Shawn Oneill [address],[place] [address] 05/28/2024 09:19:49 05/28/2024 10:44:22 Placental condition affecting management of mother 170598698 O43.102 Z3A.24 [id number] MD Shawn Oneill [address],[place] [address] 05/28/2024 09:20:02 05/28/2024 10:24:54 Routine care 983444283 Z34.90 [id number] MD Shawn Oneill [address],[place] [address] 06/25/2024 09:20:54 06/25/2024 10:29:09 Marginal insertion of umbilical cord 84750550 O43.123 O36.63X9 Z3A.28 [id number] MD Shawn Oneill [address],[place] [address] 06/25/2024 09:21:09 06/25/2024 10:29:29 Routine care 868711568 Z34.90 [id number] MD Shawn Oneill [address],[place] [address] 07/10/2024 09:16:56 07/10/2024 09:52:49 Routine care 772157236 Z34.90 [id number] MD Shawn Oneill [address],[place] [address] 07/23/2024 10:25:15 07/23/2024 10:56:00 Routine care 165961469 Z34.90 [id number] MD Shawn Oneill [address],[place] [address] 08/06/2024 16:59:14 08/07/2024 08:22:34 care status 337096263 Z34.83 [id number] MD Shawn Oneill [address],[place] [address] 08/06/2024 16:59:49 08/07/2024 15:21:31 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 Z3A.34 [id number] MD Shawn Oneill [address],[place] [address] 08/20/2024 10:35:56 08/20/2024 11:03:18 care status 237839660 Z34.83 [id number] MD Shawn Oneill [address],[place] [address] 08/27/2024 10:13:32 08/27/2024 10:48:56 care status 105855719 Z34.83 [id number] Isiah Otero MD [place] [address],[place] [address] 09/03/2024 16:50:07 09/03/2024 17:33:48 Abnormal placenta affecting management of mother 75423385 O43.193 Z3A.38 [id number] Isiah Oteor MD [place] [address],[place] [address] 09/03/2024 16:50:18 09/04/2024 01:28:24 [id number] Isiah Otero MD [place] [address],[place] [address] 09/09/2024 08:51:16 09/09/2024 18:48:37 Health Concerns Section Related Observation LastModified by Organization Detai ls LastModified Time None Recorded Concern Status LastModified by Organization Details LastModified Time None Recorded Advance Directives Directive N: Payers Encounter Date Sequence Insurance Name Policy Number Policy Bower Covered Member ID Bower Member ID Guarantor Name 08/20/2024 1 [facility] ON OR AFTER 10/13/20 (MEDICAID REPLACEMENT - HMO) Paulino Rodriguez [id number] Alessandro Campos 08/27/2024 1 [facility] ON OR AFTER 10/13/20 (MEDICAID REPLACEMENT - HMO) Paulino Rodriguez [id number] Alessandro Mota 09/03/2024 1 [facility] ON OR AFTER 10/13/20 (MEDICAID REPLACEMENT - HMO) Paulino Rodriguez [id number] Alessandro Mota 09/03/2024 1 [facility] ON OR AFTER 10/13/20 (MEDICAID REPLACEMENT - HMO) Paulino Rodriguez [id number] Alessandro Mota 09/09/2024 1 [facility] ON OR AFTER 10/13/20 (MEDICAID REPLACEMENT - HMO) Paulino Rodriguez [id number] Alessandro Mota OBGyn Episode Ob Episode Information Episode Created Date Number of Fetuses Patient Bloodtype Patient rh Status Prepregnancy Weight lbs Domestic Partner Domestic Partner Phone Father Name Cmm Programmer Status 09/03/19 24 1 CLOSED Fetus Data First Name Last Name Admitted to NICU Weight (g) Sex Living Outcome Pediatric Complications Fetus ID Race Codes Race Delivery Type , Spontane ous [id number] Eric Calculation Initial Eric Date Initial Exam Date Initial Exam Provider Initial Ultrasound Date Last Menstrual Period Date Ultra Sound Weeks Gestation 0 Eighteen To Twenty Week Eric Update Ultra Sound Date Fundal Height At Umbil Quickening Date Ultra Sound Latest Weeks Gestation Final Eric Confirmed By Final Eric Confirmed Date Final Eric Date Ultra Sound Latest Days Gestation 0 0 Menstrual History Last Menstrual Date Menses Monthly On Bcp Conception Prior Menses Frequency Hcg Plus Date Menarche Onset Age Delivery Information Delivery Date Delivery Type Labor Anesthesia Weeks Gestation Incision Type Labor Labor Length Hrs Delivered By Post Complications Tubal Sterilization Discharge Date Comments 0 Discharge Information Feeding Method Contraceptive Method Maternal HG B and HCT Levels Ob Episode Information Episode Created Date Number of Fetuses Patient Bloodtype Patient rh Status Prepregnancy Weight lbs Domestic Partner Domestic Partner Phone Father Name Cmm Programmer Status 09/03/19 24 1 CLOSED Fetus Data First Name Last Name Admitted to NICU Weight (g) Sex Living Outcome Pediatric Complications Fetus ID Race Codes Race Delivery Type 3175.14 4 F Full Term [id number] Vaginal Delivery Eric Calculation Initial Eric Date Initial Exam Date Initial Exam Provider Initial Ultrasound Date Last Menstrual Period Date Ultra Sound Weeks Gestation 0 Eighteen To Twenty Week Eric Update Ultra Sound Date Fundal Height At Umbil Quickening Date Ultra Sound Latest Weeks Gestation Final Eric Confirmed By Final Eric Confirmed Date Final Eric Date Ultra Sound Latest Days Gestation 0 0 Menstrual History Last Menstrual Date Menses Monthly On Bcp Conception Prior Menses Frequency Hcg Plus Date Menarche Onset Age Delivery Information Delivery Date Delivery Type Labor Anesthesia Weeks Gestation Incision Type Labor Labor Length Hrs Delivered By Post Complications Tubal Sterilization Discharge Date Comments 7 40 Discharge Information Feeding Method Contraceptive Method Maternal HG B and HCT Levels Ob Episode Information Episode Created Date Number of Fetuses Patient Bloodtype Patient rh Status Prepregnancy Weight lbs Domestic Partner Domestic Partner Phone Father Name Cmm Programmer Status 03/05/20 23 1 A Positive Edilber to OPEN Fetus Data First Name Last Name Admitted to NICU Weight (g) Sex Living Outcome Pediatric Complications Fetus ID Race Codes Race Delivery Type [id number] Problems Problem Notes Problem Name Start Date End Date Resolution Snomed Code Not e Marginal insertion of umbilical cord [id number] Eric Calculation Initial Eric Date Initial Exam Date Initial Exam Provider Initial Ultrasound Date Last Menstrual Period Date Ultra Sound Weeks Gestation 03/05/2024 02/13/2024 12/08/2023 10 Eighteen To Twenty Week Eric Update Ultra Sound Date Fundal Height At Umbil Quickening Date Ultra Sound Latest Weeks Gestation Final Eric Confirmed By Final Erci Confirmed Date Final Eric Date Ultra Sound Latest Days Gestation 04/30/19 25 21 09/14/19 25 4 Pre-ayleen Flowsheet Flowsheet Date 03/05/2024 Bates Score Blood Edema Fundus Height Fundus Units Glucose Ketones Leukocytes Nitrite Labor Signs Protein Cervic Dilation Cervic Effacement Cervic Station Type Weight in lbs Pre/Post Dialysis Refused Weight 139.69472640675 BP Diastolic BP Location Tested BP Systolic BP Type 64 L arm 101 sitting Fetus Heart Rate Present A 145 Fetus Movement A No Comments this patient is a 23-year-ol d multiparous female at 12 weeks' gestation who presents for initial care. She has a history of term vaginal births. Her medical, surgical, obstetric history is unremarkable. She is vaccinated. She was given precautions recommendations for . We talked about vaccines in . Talked about care in detail. She is having genetic testing. She had a normal 12 week ultrasound. To begin routine care. Flowsheet Date 04/02/2024 Bates Score Blood Edema Fundus Height Fundus Units Glucose Ketones Leukocytes Nitrite Labor Signs Protein Cervic Dilation Cervic Effacement Cervic Station Type Weight in lbs Pre/Post Dialysis Refused 141.813186710852 BP Diastolic BP Location Tested BP Systolic BP Type 72 L arm 106 sitting Fetus Heart Rate Present Fetus Movement A No Comments Flowsheet Date 04/30/2024 Bates Score Blood Edema Fundus Height Fundus Units Glucose Ketones Leukocytes Nitrite Labor Signs Protein Cervic Dilation Cervic Effacement Cervic Station Type Weight in lbs Pre/Post Dialysis Refused BP Diastolic BP Location Tested BP Systolic BP Type Fetus Heart Rate Present Fetus Movement Comments Flowsheet Date 04/30/2024 Bates Score Blood Edema Fundus Height Fundus Units Glucose Ketones Leukocytes Nitrite Labor Signs Protein Cervic Dilation Cervic Effacement Cervic Station Type Weight in lbs Pre/Post Dialysis Refused 145.8927421935 BP Diastolic BP Location Tested BP Systolic BP Type 65 L arm 115 sitting Fetus Heart Rate Present A 145 Fetus Movement Comments no complaints, no problems, routine care, no contractions, no vaginal bleeding, no loss of fluid, no cramping, Flowsheet Date 05/28/2024 Bates Score Blood Edema Fundus Height Fundus Units Glucose Ketones Leukocytes Nitrite Labor Signs Protein Cervic Dilation Cervic Effacement Cervic Station Type Weight in lbs Pre/Post Dialysis Refused BP Diastolic BP Location Tested BP Systolic BP Type Fetus Heart Rate Present Fetus Movement Comments Flowsheet Date 05/28/2024 Bates Score Blood Edema Fundus Height Fundus Units Glucose Ketones Leukocytes Nitrite Labor Signs Protein Cervic Dilation Cervic Effacement Cervic Station Type Weight in lbs Pre/Post Dialysis Refused 151.034970248251 BP Diastolic BP Location Tested BP Systolic BP Type 70 L arm 106 sitting Fetus Heart Rate Present A 145 Fetus Movement A Yes Comments no complaints, no problems, routine care, no contractions, no vaginal bleeding, no loss of fluid, no cramping Flowsheet Date 06/25/2024 Bates Score Blood Edema Fundus Height Fundus Units Glucose Ketones Leukocytes Nitrite Labor Signs Protein Cervic Dilation Cervic Effacement Cervic Station Type Weight in lbs Pre/Post Dialysis Refused BP Diastolic BP Location Tested BP Systolic BP Type Fetus Heart Rate Present Fetus Movement Comments Flowsheet Date 06/25/2024 Bates Score Blood Edema Fundus Height Fundus Units Glucose Ketones Leukocytes Nitrite Labor Signs Protein Cervic Dilation Cervic Effacement Cervic Station Type Weight in lbs Pre/Post Dialysis Refused 157.469196180813 BP Diastolic BP Location Tested BP Systolic BP Type 74 L arm 109 sitting Fetus Heart Rate Present A 145 Fetus Movement A Yes Comments no complaints, no problems, routine care, no contractions, no vaginal bleeding, no loss of fluid, no crampingNormal growth Flowsheet Date 07/10/2024 Bates Score Blood Edema Fundus Height Fundus Units Glucose Ketones Leukocytes Nitrite Labor Signs Protein Cervic Dilation Cervic Effacement Cervic Station Type Weight in lbs Pre/Post Dialysis Refused Weight 155.816944947937 BP Diastolic BP Location Tested BP Systolic BP Type 73 L arm 119 sitting Fetus Heart Rate Present A 143 Present Fetus Movement A Yes Comments no complaints, no problems, routine care, no contractions, no vaginal bleeding, no loss of fluid, no cramping Flowsheet Date 07/23/2024 Bates Score Blood Edema Fundus Height Fundus Units Glucose Ketones Leukocytes Nitrite Labor Signs Protein Cervic Dilation Cervic Effacement Cervic Station Type Weight in lbs Pre/Post Dialysis Refused Weight 156.255435018464 BP Diastolic BP Location Tested BP Systolic BP Type 71 L arm 104 sitting Fetus Heart Rate Present A 154 Present Fetus Movement A Yes Comments no complaints, no problems, routine care, no contractions, no vaginal bleeding, no loss of fluid, no cramping Flowsheet Date 08/06/2024 Bates Score Blood Edema Fundus Height Fundus Units Glucose Ketones Leukocytes Nitrite Labor Signs Protein Cervic Dilation Cervic Effacement Cervic Station Type Weight in lbs Pre/Post Dialysis Refused BP Diastolic BP Location Tested BP Systolic BP Type Fetus Heart Rate Present Fetus Movement Comments Flowsheet Date 08/06/2024 Bates Score Blood Edema Fundus Height Fundus Units Glucose Ketones Leukocytes Nitrite Labor Signs Protein Cervic Dilation Cervic Effacement Cervic Station Type Weight in lbs Pre/Post Dialysis Refused Weight 159.257043904708 BP Diastolic BP Location Tested BP Systolic BP Type 72 L arm 112 sitting Fetus Heart Rate Present Fetus Movement A Yes Comments no complaints, no problems, routine care, no contractions, no vaginal bleeding, no loss of fluid, no cramping normal growth ultrasound today Flowsheet Date 08/20/2024 Bates Score Blood Edema Fundus Height Fundus Units Glucose Ketones Leukocytes Nitrite Labor Signs Protein Cervic Dilation Cervic Effacement Cervic Station 36 cm 2cm 30% -3 Type Weight in lbs Pre/Post Dialysis Refused Weight 162.017191557561 BP Diastolic BP Location Tested BP Systolic BP Type 70 L arm 112 sitting Fetus Heart Rate Present A 153 Present Fetus Movement A Yes Comments no complaints, no problems, routine care, no contractions, no vaginal bleeding, no loss of fluid, no cramping Flowsheet Date 08/27/2024 Bates Score Blood Edema Fundus Height Fundus Units Glucose Ketones Leukocytes Nitrite Labor Signs Protein Cervic Dilation Cervic Effacement Cervic Station 3cm 50% -3 Type Weight in lbs Pre/Post Dialysis Refused 162.961680245718 BP Diastolic BP Location Tested BP Systolic BP Type 74 L arm 107 sitting Fetus Heart Rate Present A 155 Present Fetus Movement A Yes Comments no complaints, no problems, routine care, no contractions, no vaginal bleeding, no loss of fluid, no cramping Flowsheet Date 09/03/2024 Bates Score Blood Edema Fundus Height Fundus Units Glucose Ketones Leukocytes Nitrite Labor Signs Protein Cervic Dilation Cervic Effacement Cervic Station Type Weight in lbs Pre/Post Dialysis Refused BP Diastolic BP Location Tested BP Systolic BP Type Fetus Heart Rate Present Fetus Movement Comments Flowsheet Date 09/03/2024 Bates Score Blood Edema Fundus Height Fundus Units Glucose Ketones Leukocytes Nitrite Labor Signs Protein Cervic Dilation Cervic Effacement Cervic Station 4cm 50% -3 Type Weight in lbs Pre/Post Dialysis Refused 165.046091952724 BP Diastolic BP Location Tested BP Systolic BP Type 78 L arm 120 sitting Fetus Heart Rate Present A 144 Fetus Movement A Yes Comments no complaints, no problems, routine care, no contractions, no vaginal bleeding, no loss of fluid, no cramping Flowsheet Date 09/09/2024 Bates Score Blood Edema Fundus Height Fundus Units Glucose Ketones Leukocytes Nitrite Labor Signs Protein Cervic Dilation Cervic Effacement Cervic Station Type Weight in lbs Pre/Post Dialysis Refused BP Diastolic BP Location Tested BP Systolic BP Type Fetus Heart Rate Present Fetus Movement Comments Menstrual History Last Menstrual Date Menses Monthly On Bcp Conception Prior Menses Frequency Hcg Plus Date Menarche Onset Age 0812/08/2023 true Delivery Information Delivery Date Delivery Type Labor Anesthesia Weeks Gestation Incision Type Labor Labor Length Hrs Delivered By Post Complications Tubal Sterilization Discharge Date Comments Discharge Information Feeding Method Contraceptive Method Maternal HG B and HCT Levels Ob Episode Information Episode Created Date Number of Fetuses Patient Bloodtype Patient rh Status Prepregnancy Weight lbs Domestic Partner Domestic Partner Phone Father Name Cmm Programmer Status 09/03/19 24 1 CLOSED Fetus Data First Name Last Name Admitted to NICU Weight (g) Sex Living Outcome Pediatric Complications Fetus ID Race Codes Race Delivery Type 2721.55 2 M Full Term [id number] Vaginal Delivery Eric Calculation Initial Eric Date Initial Exam Date Initial Exam Provider Initial Ultrasound Date Last Menstrual Period Date Ultra Sound Weeks Gestation 0 Eighteen To Twenty Week Eric Update Ultra Sound Date Fundal Height At Umbil Quickening Date Ultra Sound Latest Weeks Gestation Final Eric Confirmed By Final Eric Confirmed Date Final Eric Date Ultra Sound Latest Days Gestation 0 0 Menstrual History Last Menstrual Date Menses Monthly On Bcp Conception Prior Menses Frequency Hcg Plus Date Menarche Onset Age Delivery Information Delivery Date Delivery Type Labor Anesthesia Weeks Gestation Incision Type Labor Labor Length Hrs Delivered By Post Complications Tubal Sterilization Discharge Date Comments 1 40 Discharge Information Feeding Method Contraceptive Method Maternal HG B and HCT Levels
--- OUTSIDE RECORDS SUMMARY | 2024-09-10 05:09 | XMS_ITS | Continuity of Care Document ---
Author Organization [facility] [place] Address [address] [place] [address] Assessment No assessment recorded. Plan of Treatment Reminders Order Date Submit Date Provider Last Modified By Organization Details Last Modified Time Details Appointments None record ed. Lab None record ed. Referral None record ed. Procedures None record ed. Surgeries None record ed. Imaging None record ed. Medication Orders None record ed. Patient TargetsNo targets recorded. Patient InstructionsNo instructions recorded. Reason for Referral None Reported. Results Created Date Observation Date Name Description Value Unit Range Abnormal Flag Note LastModifiedBy Organization Detail LastModifiedTime 03/05/20 24 03/05/2024 US, obste tric, nucha l trans lucen cy No observ ation record ed. [facility] [address] [place], [address], 03/05/2024 12:59:38 03/05/20 24 03/05/2024 US, obste tric, 1st trime ster No observ ation record ed. [facility] [address], [place], [address], 03/05/2024 12:59:48 03/05/20 24 03/05/2024 US, obste tric, nucha l trans lucen cy No observ ation record ed. [email or web address], [place], [address], 03/05/2024 21:49:52 04/30/19 25 04/30/2024 US, obste tric, 2nd or 3rd trime ster No observ ation record ed. [email or web address] [place] [address], [place], [address], 04/30/2024 13:11:32 04/30/19 25 04/30/2024 US, obste tric, 2nd or 3rd trime ster No observ ation record ed. [email or web address] [address], [place], [address], 04/30/2024 22:31:27 05/28/19 25 05/28/2024 US, obste tric, follo w-up No observ ation record ed. [email or web address] [place] [address], [place], [address], 05/28/2024 12:15:43 05/28/19 25 05/28/2024 US, obste tric, follo w-up No observ ation record ed. [email or web address] [address], [place], [address], 05/28/2024 22:32:48 06/26/19 25 06/25/2024 US, obste tric, follo w-up No observ [facility]ion [facility] [address], [place], [address], 06/25/2024 16:44:11 06/26/19 25 06/25/2024 US, obste tric, follo w-up No observ ation record ed. [address], [place], [address], 06/30/2024 17:57:18 08/08/19 25 08/06/2024 US, obste tric, follo w-up No observ ation record ed. [address], [place], [address], 08/11/2024 14:17:18 08/08/19 25 08/07/2024 US, obste tric, follo w-up No observ ation record ed. [email or web address] [place] [address], [place], [address], 08/07/2024 13:31:30 09/04/19 25 09/03/2024 US, obste tric, follo w-up No observ ation record ed. [email or web address] [place] [address], [place], [address], 09/03/2024 17:54:19 09/04/19 25 09/03/2024 US, obste tric, follo w-up No observ ation record ed. [address], [place], [address], 09/08/2024 23:07:18 Result Notes None recorded. Problems Name Problem SNOMED Code Status Onset Date Resolution Date Notes Provider Name and Address Organization Details Recorded Time 14132282 Active 024 Ashlie Raza [facility], [facility] 10:10:01 Marginal insertion of umbilical cord 52495338 Active Isiah Otero MD [address], [place], [address], [facility] 5 11:17:56 Problem Notes None recorded. Procedures Surgical History Date Name Laterality Status Provider Name and Address Organization Details Recorded Time 04/02/20 24 Colposcopy completed Isiah Otero MD [address], [place], [address], [facility] 04/02/2024 19:08:53 03/05/20 24 Date of Last Pap Smear completed Ashlie Raza [facility] 03/05/2024 10:06:35 04/15/19 17 excision of sebaceous cyst of head or neck completed Nicki Fontaine [facility] 09/03/2023 18:09:27 Imaging Results None recorded. [...] Available Not Avai lable Not Available Vitals None Recorded Social History Question Answer Notes LastModified by Organizat ion Details LastModified Time Tobacco Smoking Status Never Smoker Nicki Fontiane [facility], [facility] 09/03/2023 18:08:51 Do You Have An Advance Directive? No Information n ot available 02/13/2024 Are You Blind Or Do You Have Difficulty Seeing? No Information n ot available 09/03/2023 What Is Your Level Of Caffeine Consumption? None Information not available 02/13/2024 How Much Tobacco Do You Chew? None Information not available 02/13/2024 In The 14 Days Before Symptom Onset, Have You Had Close Contact With A Laboratory-confirm ed COVID-19 While That Case Was Ill? No [email or web address] Information n ot available 09/03/2023 In The 14 Days Before Symptom Onset, Have You Had Close Contact With A Person Who Is Under Investigation For COVID-19 While That Person Was Ill? No [email or web address] Information not available 09/03/2023 Have You Been To An Area Known To Be High Risk For COVID-19? No Information not available 09/03/2023 Are You Deaf Or Do You Have Serious Difficulty Hearing? No Information not available 09/03/2023 What Type Of Diet Are You Following? REGULAR [email or web address] Information n ot available 09/03/2023 What Is The Highest Grade Or Level Of School You Have Completed Or The Highest Degree You Have Received? [id number] Information not available 02/13/2024 Are There Any Guns Present In Your Home? No Information not available 02/13/2024 Have You Ever Been Counseled For Unhealthy Alcohol Use? No [email or web address] Information not available 09/03/2023 Do You Use Protection During Sex? No Information not available 02/13/2024 Do You Use Your Seat Belt Or Car Seat Routinely? Yes [email or web address] Information not available 09/03/2023 Do You Have Smoke And Carbon Monoxide Detectors In Your Home? Yes [email or web address] Information not available 09/03/2023 How Much Tobacco Do You Smoke? No Information not available 02/13/2024 Do You Use Sunscreen Routinely? No Information not available 02/13/2024 Has Tobacco Cessation Counseling Been Provided? No [email or web address] Information not available 09/03/2023 Have You Used IV Drugs? No Information not available 02/13/2024 Do You Have Difficulty Walking Or Climbing Stairs? No [email or web address] Information not available 09/03/2023 Sex: Unknown Functional Status Question Answer Note LastModified by Organizat ion Details LastModified Time Do you use any illicit or recreational drugs? No [email or web address] Information not available 09/03/2023 Do you or have you ever used any other forms of tobacco or nicotine? No [email or web address] Information not available 09/03/2023 What is your level of alcohol consumption? None Information not available 02/13/2024 Are you able to walk? YESWOREST [email or web address] Information not available 09/03/2023 Are you able to care for yourself? Yes [email or web address] Information not available 09/03/2023 What is your occupation? Stay at home mom Information not available 02/13/2024 Do you have difficulty dressing or bathing? No [email or web address] Information not available 09/03/2023 What is your exercise level? Moderate Information not available 02/13/2024 Mental Status Question Answer Note LastModified by Organization D etails LastModified Time Do you feel stressed (tense, restless, nervous, or anxious, or unable to sleep at night)? [id number] Information not available 02/13/2024 Family History Relationship Description Onset Age of this Age Resolved Age Notes LastModified by Organization Details LastModified Time Father No current problems or disability [email or web address] Not available 08/14 18:08:31 Mother No current problems or disability [email or web address] Not available 08/14 18:08:31 Medical History Condition Response Allergies (Food, seasonal, environmental ) N Other N Breast Cancer N Drug/Latex Allergies/Reactions N Blood Transfusion N Lung Disease N Dermatologic Disorders N Defects or Inherited Disease N Breast Problem N Gestational Diabetes N Hematologic disorders N Anesthesia Complications N History of STI N Deep Vein Thrombosis N Polycystic ovary syndrome N Anxiety Disorder Y Autoimmune disease N Arthritis N Polyps N Infertility N History of abnormal pap N Acid Reflux (GERD) N Cancer N Varicosities N Stroke N Neurologic/Epilepsy N Endometriosis N High Cholesterol N Fibromyalgia N Headaches N Kidney Disease N Heart Problems N [...] SNOMED-CT Code Diagnosis ICD10 Code Diagnosis Note [id number] MD Shawn Oneill [address],[place] [address] 08/20/2024 10:35:56 08/20/2024 11:03:18 care status [id number] Z34.83 [id number] MD Shawn Oneill [address],[place] [address] 08/27/2024 10:13:32 08/27/2024 10:48:56 care status [id number] Z34.83 [id number] MD Shawn Oneill [address],[place] [address] 09/03/2024 16:50:07 09/03/2024 17:33:48 Abnormal placenta affecting management of mother [id number] O43.193 Z3A.38 [id number] Isiah Otero MD [place] [address],[place] [address] 09/03/2024 16:50:18 09/04/2024 01:28:24 [id number] Isiah Otero MD [place] [address],[place] [address] 09/09/2024 08:51:16 09/09/2024 18:48:37 Health Concerns Section Related Observation LastModified by Organization Detai ls LastModified Time None Recorded Concern Status LastModified by Organization Details LastModified Time None Recorded Payers Encounter Date Sequence Insurance Name Policy Number Policy Bower Covered Member ID Bower Member ID Guarantor Name 09/09/2024 1 [facility] ON OR AFTER 10/13/20 (MEDICAID REPLACEMENT - HMO) Paulino Rodriguez [id number] Alessandro Mota OBGyn Episode Ob Episode Information Episode Created Date Number of Fetuses Patient Bloodtype Patient rh Status Prepregnancy Weight lbs Domestic Partner Domestic Partner Phone Father Name Air Turning Machine Feeder Status 03/05/20 24 1 A Positive Edilber to OPEN Fetus Data First Name Last Name Admitted to NICU Weight (g) Sex Living Outcome Pediatric Complications Fetus ID Race Codes Race Delivery Type [id number] Problems Problem Notes Problem Name Start Date End Date Resolution Snomed Code Not e Marginal insertion of umbilical cord [id number] Eric Calculation Initial Eric Date Initial Exam [...] Gestation 04/30/19 25 21 09/14/19 25 4 Pre- Flowsheet Flowsheet Date 03/05/2024 Bates Score Blood Edema Fundus Height Fundus Units Glucose Ketones Leukocytes Nitrite Labor Signs Protein Cervic Dilation Cervic Effacement Cervic Station Type Weight in lbs Pre/Post Dialysis Refused Weight 139.93387738753 BP Diastolic BP Location Tested BP Systolic [...] Type Weight in lbs Pre/Post Dialysis Refused 141.002628225678 BP Diastolic BP Location Tested BP Systolic [...] Type Weight in lbs Pre/Post Dialysis Refused 145.0163805371 BP Diastolic BP Location Tested BP Systolic [...] Type Weight in lbs Pre/Post Dialysis Refused 151.351544774739 BP Diastolic BP Location Tested BP Systolic [...] Type Weight in lbs Pre/Post Dialysis Refused 157.568080075242 BP Diastolic BP Location Tested BP Systolic BP Type 74 L arm 109 sitting Fetus Heart Rate Present A 145 Fetus Movement A Yes Comments no complaints, no problems, routine care, no contractions, no vaginal bleeding, no loss of fluid, no crampingNormal growth US Flowsheet Date 07/10/2024 Bates Score Blood Edema Fundus Height Fundus Units Glucose Ketones Leukocytes Nitrite Labor Signs Protein Cervic Dilation Cervic Effacement Cervic Station Type Weight in lbs Pre/Post Dialysis Refused Weight 155.508644827775 BP Diastolic BP Location Tested BP Systolic [...] Weight in lbs Pre/Post Dialysis Refused Weight 156.398491057846 BP Diastolic BP Location Tested BP Systolic [...] Weight in lbs Pre/Post Dialysis Refused Weight 159.221148250414 BP Diastolic BP Location Tested BP Systolic [...] Weight in lbs Pre/Post Dialysis Refused Weight 162.606207975622 BP Diastolic BP Location Tested BP Systolic [...] Type Weight in lbs Pre/Post Dialysis Refused 162.785421010556 BP Diastolic BP Location Tested BP Systolic [...] Type Weight in lbs Pre/Post Dialysis Refused 165.105999672323 BP Diastolic BP Location Tested BP Systolic [...]
--- OUTSIDE RECORDS SUMMARY | 2024-09-10 05:09 | XMS_ITS | Clinical Summary ---
Author Organization [facility] [employer] Address [address] [place] [address] Care Team Providers Care Tangible Personal Property Appraiser Name Role Phone Tracy Nunez TONY-MOTORS ASSEMBLER Primary Care Provider + Source Comments [facility] [employer],non-owned Affiliates and Associated Physician Practices is amultiple site organization consisting of ambulatory clinics and hospital sitesin [place], [place], [place] and [place]. This disclosure is being madepursuant to the Care Everywhere program and may not contain all information available regarding this patient. Last updated 18.[facility] [employer] Allergies No known active allergies Medications * Be aware that medications may not be up to date on this document. Alwaysverify current medications with the patient. acetaminophen (TYLENOL) 325 MG tablet Take 1 tablet by mouth every 4 hours as needed for Fever or Pain Maximum allowable Acetaminophen amount = 4 Grams (4000 mg) / 24 hours. 50 tablet 8 Active ibuprofen (MOTRIN) 200 MG tablet Take 1 tablet by mouth every 6 hours as needed for Pain 50 tablet 8 Active JENCYCLA 0.35 MG tablet 8 Active Active Problems Patient Care Coordination No te Formatting of this note migh t be different from the original. [facility] 11/2016 No additional problems on file Social History Tobacco Use Types Packs/Day Years Used Date Smoking Tobacco: Never Smokeless Tobacco: Never Comments Unknown Sex and Gender Information Value Date Recorded Sex Assigned at Not on file Legal Sex Female 8:40 AM CDT Gender Identity Not on file Sexual Orientation Not on file Last Filed Vital Signs Vital Sign Reading Time Taken Comments Blood Pressure 106/65 05/28/2017 5:30 PM DIGITAL MEDIA REPRESENTATIVE Pulse 76 05/28/2017 5:30 PM DIGITAL MEDIA REPRESENTATIVE Temperature 36.6 C (97.8 F) 05/28/2017 5:31 PM DIGITAL MEDIA REPRESENTATIVE Respiratory Rate 16 05/28/2017 5:30 PM DIGITAL MEDIA REPRESENTATIVE Oxygen Saturation 98% 05/28/2017 5:30 PM DIGITAL MEDIA REPRESENTATIVE Inhaled Oxygen Concentration 100% 05/28/2017 4 :10 PM DIGITAL MEDIA REPRESENTATIVE Weight 63 kg (138 lb 14.2 oz) 07/03/2017 10:31 A M CDT Height 160.9 cm (5' 3.35) 05/28/2017 11:[address] Body Mass Index - - Plan of Treatment Health Maintenance Due Date Last Done Comments HIV SCREENING 08/04/2014 HPV VACCINE (1 - 3-dose series) 08/04/2014 CHLAMYDIA/GONORRHEA SCREENING 2015 HEPATITIS C SCREENING 07/31/2017 DTAP/TDAP/TD VACCINES (1 - Tdap) 08/04/2018 HEPATITIS B VACCINE (1 of 3 - 19+ 3-dose series) 08/04/2018 COVID-19 VACCINE (1 - 2023-2 5 season) 2023 DEPRESSION SCREENING 04/15/2024 INFLUENZA VACCINE (Season Ended) 2024 ZOSTER VACCINE (1 of 2) 08/04/2049 HIB VACCINE Aged Out No longer eligi ble based on patient's age to complete this topic MENINGOCOCCAL (Group B) VACC INE SHARED DECISION-MAKING Aged Out No longer eligibl e based on patient's age to complete this topic MENINGOCOCCAL GROUPS A/C/Y/W VACCINE Aged Out No longer eligible b ased on patient's age to complete this topic PNEUMOCOCCAL VACCINE Aged Out No long er eligible based on patient's age to complete this topic Insurance [facility] Care Teams Tangible Personal Property Appraiser Relationship Specialty Start Date End Date Tracy Nunez APRN-MENDEL [address] [place] [phone] PCP - General Nurse Practitioner 11/14/16
[2024-09-10 05:51] LABS: Basophils Percent Auto 0.3 % (0.2-1.2); Eosinophils Absolute Auto 0.1 K/mm3 (0-0.3); Hematocrit 35.4 % (37.0-47.0); Hemoglobin 12.1 g/dL (12.0-15.0); Immature Granulocyte Absolute 0.04 K/mm3 (0.00-0.031); Immature Granulocyte Percent A 0.6 % (0-0.5); Lymphocytes Absolute Auto 1.53 K/mm3 (0.9-3.2); Mean Corpuscular HGB Conc 34.2 g/dl (32-36); Mean Corpuscular Hemoglobin 30.9 pg (26-34); Mean Corpuscular Volume 90.3 fl (80-100); Mean Platelet Volume 10.2 fl (7.4-10.4); Monocytes Absolute Auto 0.4 K/mm3 (0.1-0.6); Neutrophils Absolute Auto 4.5 K/mm3 (1.3-6.7); Neutrophils Percent Auto 68.1 % (45.5-73.1); Platelet Count Result 208 k/mm3 (150-375); Red Blood Count 3.92 M/mm3 (4.2-5.4); Red Cell Distribution Width 13.5 % (11.5-14.5); White Blood Count 6.7 K/mm3 (4.5-10.0)
[2024-09-10] MEDS: LACTATED RINGERS 1,000 ML 125 ML IV CONT ×2 (05:53→12:54)
--- NOTE | 2024-09-10 05:54 | LDADM ---
This patient, Paulino Rodriguez, was admitted to Labor/Delivery/Recovery 107 on 09/10/24 at 05:03. Plans for labor, pain management and were discussed with patient. Patient/family oriented to hospital policies and general routines including ID bracelet, bed and alarms, visiting hours, pain management, procedures, bathroom and other care routines, personal items, smoking policy, room service/diet and guest tray routines, security routines, and visiting hours. Patient/Family are encouraged to report perceived risks to care and to ask questions if they do not understand what they are told or what they should do. See OBIX for further documentation.
[2024-09-10] MEDS: OXYTOCIN 30 UNITS/NS 500 ML 30 UNITS/500 ML BAG IV CONT (06:02)
[2024-09-10 06:23] LABS: Syphilis IgG/IgM Antibody Negative (Negative)
[2024-09-10 06:37] LABS: HIV 1/2 Ab P24 Ag Result Negative (Negative)
--- NOTE | 2024-09-10 08:30 | WPDHPUPDATE1 ---
History and Physical Update Update Date/Time: 09/10/24 08:30 24-year-old multipara at 39 weeks gestation who presents for elective induction. 4 cm/70%/-2. Artificial rupture membranes-clear fluid. Active management of labor. Pitocin, AROM, no epidural History and Physical has been reviewed, including an updated exam of the patient. There are NO changes in the patient's condition. Risks, benefits, and alternatives have been discussed and questions answered. Patient agrees to proceed with procedure.
[2024-09-10] MEDS: OXYTOCIN 10 UNITS/ML VIAL IM (15:04)
--- NOTE | 2024-09-10 15:12 | PM.OBPRVD ---
OB - Vaginal Delivery Note Procedure Delivery date: 09/10/24 Intrapartal Events: Other (shoulder dystocia) Induction method: AROM and Per Pitocin Protocol Delivery monitor: External FHT and External Uterine Route of delivery: Episiotomy description: None Laceration Description: None Quantitative Blood Loss (ml): 200 Anesthesia type: None Disposition: Floor Complications: No immediate complications Narrative: Precipitous delivery, delivered by nurses, shoulder dystocia for 1 minute, legs were flexed, suprapubic pressure, posterior shoulder was delivered. [id number] shoulder dystocia
--- NOTE | 2024-09-10 19:30 | OBPPTRN ---
Patient transferred to post room #281 via wheelchair. Oriented to unit, room, information board, rooming in, admission packet and security measures. Patient verbalizes understanding.
[2024-09-10] MEDS: IBUPROFEN 600 MG TABLET PO (19:31)
[2024-09-11 05:29] LABS: Hematocrit 35.8 % (37.0-47.0)
--- NOTE | 2024-09-11 07:31 | P.PNOB_ITS ---
OB - PN: Subj Subjective Date/time seen: 09/11/24 07:31 Interval history: pp day 1 doing well baby in room OB - PN: Obj Data Labs 09/11/24 05:24 Labs: Laboratory Results - last 24 hr 09/11/24 05:24 Hgb 12.0 Hct 35.8 L OB - PN A/P Plan day: 1 Plan: routine care Time Spent With Patient Time: Total time spent is greater than 50% in coordination of care (as documented) at patient's floor/unit and/or counseling patient: Review of Systems 2 Review of Systems: All systems reviewed & are unremarkable except as noted in HPI and below Exam 2 Const: General: cooperative, healthy appearing and comfortable Eyes: General: appearance normal, both eyes and all related structures Chest: Chest palpation & inspection: normal inspection of the chest Resp: Effort & Inspection: normal respiratory effort Cardio: Rate: regular rate GI: Inspection: normal to inspection
[2024-09-11 08:30] VITALS: BP 100/64; PULSE 79; RESP 16; TEMP 36.2; O2SAT 98
[2024-09-11] MEDS: MULTIVIT/MIN/PREN/FOL AC/IRON TABLET 1 TAB PO (08:30)
[2024-09-11] MEDS: FERROUS SULFATE 325 MG TABLET DR BY MOUTH (08:30)
[2024-09-11] MEDS: IBUPROFEN 600 MG TABLET PO ×2 (08:30→18:42)
[2024-09-11] MEDS: DOCUSATE SODIUM 100 MG CAPSULE PO (08:30)
[2024-09-11 11:50] VITALS: BP 102/65; PULSE 88; RESP 16; TEMP 36.7; O2SAT 98
--- NOTE | 2024-09-11 14:57 | PC.NURSE ---
1300. Observed mother latching to the right breast in cross cradle position. was able to maintain an appropriate latch. Mother declines nipple pain/discomfort throughout feeding. Encouraged mother to keep awake and nursing at the breast for as long as baby desires. Mother taught to listen for swallowing during feedings. Reviewed using the blue feeding sheet to record time and duration of feeding. Mother voiced understanding of the education shared, to call for assistance if the infant does not latch or if there is discomfort with . name/number on communication board. Reported to the Primary RN. Mom asked if she would like a [facility] referral and she confirmed she would like one to the [facility] office.
[2024-09-11 20:03] VITALS: BP 104/69; PULSE 81; RESP 16; TEMP 36.3; O2SAT 98
[2024-09-12 08:15] VITALS: BP 109/78; PULSE 77; RESP 18; TEMP 36.2; O2SAT 100
--- NOTE | 2024-09-12 08:29 | P.PNOB_ITS ---
OB - PN: Subj Subjective Date/time seen: 09/12/24 08:29 Interval history: pp day 1 doing well baby in room Patient comments: no complaints, pain well controlled and tolerating diet OB - PN: Obj Data Labs 09/11/24 05:24 OB - PN A/P Plan day: 2 Plan: routine care and discharge home Time Spent With Patient Time: Total time spent is greater than 50% in coordination of care (as documented) at patient's floor/unit and/or counseling patient: Exam 2 Const: General: comfortable and no acute distress Resp: Effort & Inspection: normal respiratory effort Auscultation: no rales, no rhonchi and no wheezes Cardio: Rate: regular rate Heart sounds: no click, no murmurs and no rubs GI: GI Palp: Yes Soft to palpation and No Tenderness to palpation present (GI) Auscultation: normal bowel sounds Extrem: General: normal to inspection, no pedal edema and no calf tenderness
--- NOTE | 2024-09-12 08:30 | PM.OBDSVD ---
DS: Admitting Diagnosis Discharge Date 09/12/24 Admitting Diagnosis term DS: Discharge Diagnosis Discharge Diagnosis (1) Term delivered: Code(s): O80 - Encounter for full-term uncomplicated delivery Status: Acute OB - DS: Summary OB Procedures : None OB Procedures Intrapartum: Spontaneous Vag Delivery OB Procedures: : None Peripartum Data Laceration Description: None Episiotomy description: None Time Spent with Patient Time attestation: Total time spent providing and/or coordinating discharge services: Discharge Plan Discharge Discharging Clinician: Isiah Otero Patient Disposition: Home Activity: pelvic rest Diet: regular Patient Instructions: Antibiotic Form Patient Language: German Stand Alone Forms: General Discharge Information Follow-up/Referrals: Isiah Otero MD [Physician] - Discharge Medications: Continued PNV [id number] fumarate-FA [] 28 mg iron- 800 mcg tablet 1 tablet PO DAILY ferrous sulfate [Feosol] 325 mg (65 mg iron) tablet 325 mg PO DAILY valacyclovir 1 gram tablet Date of admission: 09/10/24 05:03 Primary Care Provider: PHYSICIAN,OPERATIONS LIEUTENANT Admitting Provider: Isiah Otero Attending physician on admission: Isiah Otero Condition: Stable
[2024-09-12] MEDS: IBUPROFEN 600 MG TABLET PO (09:04)
[2024-09-12] MEDS: FERROUS SULFATE 325 MG TABLET DR BY MOUTH (09:04)
[2024-09-12] MEDS: MULTIVIT/MIN/PREN/FOL AC/IRON TABLET 1 TAB PO (09:04)
[2024-09-12] MEDS: DOCUSATE SODIUM 100 MG CAPSULE PO (09:04)
--- NOTE | 2024-09-12 10:20 | PC.NURSE ---
Reviewed standard discharge information with patient including monitoring for required output, transition of stools, feeding 8-12 times every 24 hours, milk production, positioning of , shallow latch versus deep latch, and follow up at [facility] and with airfield manager in the first week of life. Parents are encouraged to take the feeding log and continue to track feedings and output for the first week . Offered outpatient resources with [facility] referral and Services at [facility]. She plans to get her breast pump through [facility]. Patient has the Mom/Baby Guide for further education and reference for common concerns, phone numbers, and guidance on when to call the doctor. A feeding plan was added to the infant?s discharge plan. Patient states that she has no further questions or concerns regarding .???
[2024-09-14 14:58] VITALS: BP 120/76; PULSE 91; RESP 16; TEMP 36.4; O2SAT 100
== END 2024-09-12 11:45 | disposition home or self-care (01) | DRG 560 ==
LOC: ANHLDR 05:07 → ANHOB2 19:37
PROVIDERS: Admitting Provider Obstetrics & Gynecology; Visit Provider Obstetrics & Gynecology
DX: O66.0 Obstructed labor due to shoulder dystocia (principal); O62.3 Precipitate labor; Z3A.39 39 weeks gestation of pregnancy; Z37.0 Single live birth
CPT/HCPCS: 36415; 85014; 85018; 85025; 86593; 86703; 86850; 86900; 86901; A9270; G0432; J2590; J7120